=== PATIENT | female | born 1990 | race Caucasian/White ===

== ENCOUNTER 2016-04-02 20:36 | Emergency (ER) | payer SELFPAY ==
[2016-04-02 21:18] VITALS: BP 126/84; O2SAT 94
--- NOTE | 2016-04-02 21:28 | ED.PDOC ---
History of Present Illness - General Chief Complaint: Fever Stated Complaint: flu symptoms Time Seen by Provider: 04/02/16 21:12 Source: patient, RN notes reviewed, Vital Signs reviewed Exam Limitations: no limitations - History of Present Illness Initial Comments: Patient with fever, chills, fatigue, ARMAS and cough for 2 days. Daughter diagnosed with Flu 5 days ago. Did not get flu shot. Timing/Duration: constant, yesterday Fever Severity/Quality: subjective Fever Therapy [employer]: Ibuprofen, Tylenol Associated Symptoms: cough, headache, muscle aches, weakness Review of Systems - Review of Systems Constitutional: States: chills, diaphoresis, fever, malaise, weakness EENTM: States: nose congestion. Denies: ear pain, ear discharge, nose pain, throat pain, throat swelling, mouth pain, mouth swelling Respiratory: States: cough. Denies: short of breath, stridor, wheezing Cardiology: States: no symptoms reported Gastrointestinal/Abdominal: States: no symptoms reported Genitourinary: States: no symptoms reported Musculoskeletal: States: muscle pain. Denies: back pain, joint pain, muscle stiffness Skin: States: no symptoms reported Neurological: States: headache Endocrine: States: no symptoms reported Hematologic/Lymphatic: States: no symptoms reported Past Medical History (General) - Vaccination History Hx Influenza Vaccination: No - Female History Patient is a Female of Child Bearing Age (10 -59 yrs old): Yes Patient : No - Triage Comment ED Triage Comment: states daughter "tested positive for flu last week" Family Medical History - Family History Father Family History: Unknown Physical Exam - Physical Exam General Appearance: Alert, No apparent distress, Ill Appearing, Well Developed, Well Hydrated, Well Nourished ENT Exam: TMs normal, pharynx normal, nasal congestion, nasal drainage Neck: non-tender, full range of motion, supple, normal inspection, trachea midline, lymphadenopathy (R), lymphadenopathy (L) Respiratory: chest non-tender, no respiratory distress, no accessory muscle use , wheezing, inspiration Cardiovascular/Chest: regular rate, rhythm, no edema, no gallop, no JVD, no murmur Extremity: normal range of motion Neurologic: no motor/sensory deficits, alert, normal mood/affect, oriented x 3 Skin Exam: normal color, diaphoresis Lymphatic: no adenopathy Progress - Progress Progress: 04/02/16 21:49 Discussed negative test result with patient. Given her exposure to the flu, her symptoms and not being vaccinated I would like to go ahead and start her on Tamiflu. She is in agreement. - Results/Orders Results/Orders: Rapid Flu test is Negative Departure - Departure Clinical Impression: Influenza Time of Disposition: 21:58 Disposition: Discharge to Home or Self Care Condition: Good Departure Forms: ED Discharge - Pt. Copy, Patient Portal Self Enrollment Instructions: Influenza Diet: resume usual diet Prescriptions: Oseltamivir [Tamiflu] 75 mg PO BID #10 cap Home Medications: Ambulatory Orders Oseltamivir [Tamiflu] 75 mg PO BID #10 cap 04/02/16 Additional Instructions: Follow up with your doctor in 2-3 days if not improving, sooner if symptoms are worsening.
[2016-04-02] MEDS ORDERED: IBUPROFEN 600 MG TAB PO ONE (21:35)
[2016-04-02] MEDS ORDERED: IBUPROFEN 200 MG TAB ONE (21:42)
[2016-04-02] MEDS ORDERED: OSELTAMIVIR 75 MG CAP PO ONE (21:50)
[2016-04-02 22:20] VITALS: TEMP 100.2
== END 2016-04-02 22:10 | disposition home or self-care (01) ==
LOC: ER 20:36
DX: J11.1 Influenza due to unidentified influenza virus with other respiratory manifestations (principal)

== ENCOUNTER → 2019-08-27 | Outpatient (CLI) | payer BC ==
--- NOTE | 2019-08-27 16:51 | MRI ---
EXAM DESCRIPTION: Brain w/wo Contrast: Magnetic Resonance Imaging. CLINICAL HISTORY: 29 years Female [facility] COMPARISON: Baseline study at this facility. TECHNIQUE: Multiplanar, high-field MRI, multiple conventional sequences, without and with gadolinium IV contrast. No adverse reactions. Multiple axial diffusion sequences. FINDINGS: Minimal edema in the bilateral optic nerve sheaths seen as hyperintense T2 signal. In addition, there is decreased size of the pituitary gland occupying less than 50% of the sella and located in the base of the sella. No mass effect or abnormal enhancement in the optic chiasm no abnormal enhancement in the sella. No abnormal enhancement or mass effect in the bilateral conal tissue of the orbits, or along the pathways of the bilateral optic nerves. Symmetric appearance of the optic globes and symmetric enhancement bilaterally. Normal FLAIR and T2-weighted signal in the periventricular white matter and chaney-white matter junctions of the cerebral hemispheres. Normal contrast enhancement. Normal signal in the bilateral basal ganglia Normal contrast enhancement. Normal signal in the brainstem and cerebellar hemispheres. Normal contrast enhancement. Concordance of the diffusion and non-diffusion sequences with no evidence of acute or subacute infarction. Cortical sulci, ventricles, and other CSF spaces, and the subdural spaces are normally configured; no ventricular enlargement. No effacement or displacement. No midline shift. No extra-axial hemorrhage. Normal contrast enhancement. Normal flow signal void in the major vessels of the [place], and the venous sinuses. IACs are symmetric bilaterally. Normal signal in the bilateral mastoid air cells. No mass effect in the bilateral Cerebellopontine angles. Normal contrast enhancement. Base of the cerebellar tonsils is at the level of the foramen magnum. Minimal mucoperiosteal thickening in the paranasal sinuses. The bony calvarium is intact. IMPRESSION: 1. Bilateral mild optic nerve sheath edema. No mass in the orbits, the orbital cones, no mass effect on the optic nerves or the optic chiasm. Increased CSF fluid in the sella with pituitary gland small and located in the base of the sella. These findings are associated with pseudotumor cerebri. Ventricles are not enlarged. Other CSF spaces are unremarkable. Normal enhancement. 2. Remainder the study is unremarkable except for mild paranasal chronic sinusitis. Electronically signed by: Emmanuel Rios MD 08/27/2019 4:50 PM CDT
== END ==
LOC: MRI 07:12
PROVIDERS: ATTEND Nurse Practitioner Family
DX: H47.11 Papilledema associated with increased intracranial pressure (principal); J32.9 Chronic sinusitis, unspecified